=== PATIENT | female | born 1980 | race Asian ===

== ENCOUNTER 2016-08-22 15:50 | Inpatient (IN) | payer SELFPAY ==
[~2016-08-22] VITALS: Ht 162.6 cm; Wt 68.0 kg
[~2016-08-22 15:50] MED LIST: IBUP-974 PO
[2016-08-22] MEDS ORDERED: PREN-380 PO (16:16)
[2016-08-22] MEDS ORDERED: METOCLOPRAMIDE 10 MG/2 ML INJ VIAL IVP SCH (16:21)
[2016-08-22] MEDS ORDERED: TRIAMCINOLONE 10 MG/ML 5ML VIAL IA SCH (16:22)
[2016-08-22] MEDS: LACTATED RINGERS 1,000 ML IV SCH ×2 (16:36→18:30)
[2016-08-22 17:35] VITALS: BP 112/72
[2016-08-22 17:57] LABS: BASOPHILS # (AUTO) 0.1 K/uL (0.00-0.22); BASOPHILS % (AUTO) 0.5 % (0.0-2.0); EOSINOPHILS # (AUTO) 0.2 K/uL (0-0.4); EOSINOPHILS % (AUTO) 1.5 % (0.0-4.0); HEMATOCRIT 34.2 % (36-48); HEMOGLOBIN 11.1 g/dL (12.0-16.0); LYMPHOCYTES # (AUTO) 1.4 K/uL (2.5-16.5); MEAN CORPUSCULAR HEMOGLOBIN 28 pg (27-31); MEAN CORPUSCULAR HGB CONC 32 g/dL (33-37); MEAN CORPUSCULAR VOLUME 87 fL (80-94); MONOCYTES # (AUTO) 0.8 K/uL (0.8-1.0); MONOCYTES % (AUTO) 6.7 % (1.7-9.3); NEUTROPHILS # (AUTO) 9.9 K/uL (1.8-7.7); NEUTROPHILS % (AUTO) 80.3 % (42.2-75.2); PLATELET COUNT (AUTO) 235 K/uL (140-450); RED BLOOD CELL COUNT(AUTO) 3.95 MIL/uL (4.20-5.40); RED CELL DISTRIBUTION WIDTH 13.8 % (11.6-13.7); WHITE BLOOD COUNT (AUTO) 12.4 K/uL (4.8-10.8)
[2016-08-22] MEDS ORDERED: TRIAMCINOLONE 10 MG/ML 5ML VIAL ONE (17:58)
[2016-08-22] MEDS ORDERED: OXYTOCIN 10 UNITS/ML VIAL ONE ×2 (17:58→19:18)
[2016-08-22 18:10] LABS: APPEARANCE,URINE CLEAR (CLEAR); BILIRUBIN,URINE NEGATIVE (NEGATIVE); BLOOD, URINE TRACE-I (NEGATIVE); COLOR,URINE YELLOW (YELLOW); LEUKOCYTE ESTERASE ,URINE NEGATIVE (NEGATIVE); NITRITE, URINE NEGATIVE (NEGATIVE); PROTEIN,URINE NEGATIVE (NEGATIVE); UGLUCOSE NEGATIVE (NEGATIVE); UROBILINOGEN,URINE 0.2 EU/dL (0.2 - 1)
[2016-08-22 18:20] LABS: ANION GAP 13.9 (8-16); CALCIUM 8.4 mg/dL (8.5-10.1); CARBON DIOXIDE 23.8 mmol/L (21-32); CREATININE 0.5 mg/dL (0.6-1.3); POTASSIUM 3.7 mmol/L (3.5-5.1)
[2016-08-22 18:24] LABS: BACTERIA,URINE FEW /HPF (None Seen); RBC,URINE NONE SEEN /HPF (0-5); SQUAMOUS EPITHELIAL CELL,UR RARE /LPF (0-3 (FEW)); WBC,URINE 0-5 (RARE) /HPF (0-5)
[2016-08-22 18:25] LABS: ALBUMIN 2.7 g/dL (3.4-5.0); TOTAL BILIRUBIN 0.4 mg/dL (0.0-1.0); TOTAL PROTEIN, SERUM 6.5 g/dL (6.4-8.2)
[2016-08-22] MEDS ORDERED: KETOROLAC 30 MG/ML VIAL ONE (19:18)
[2016-08-22] MEDS ORDERED: ONDANSETRON 4 MG/2 ML VIAL ONE (19:18)
[2016-08-22] MEDS ORDERED: BUPIVACAINE-MPF 0.75% 10 ML VIAL INJ ONE (19:18)
[2016-08-22] MEDS ORDERED: ceFAZolin 1,000 MG VIAL IVP ONE (19:21)
[2016-08-22] MEDS ORDERED: MORPHINE PRES FREE 10 MG/10 ML AMP IV ONE (19:25)
[2016-08-22] MEDS ORDERED: OXYTOCIN 20 UNITS/LR PREMIX 1,000 ML IV ONE ×2 (19:35→21:02)
[2016-08-22] MEDS ORDERED: diphenhydrAMINE 50 MG/ML VIAL ONE (19:35)
[2016-08-22] MEDS ORDERED: NALOXONE 0.4 MG/ML VIAL IVP PRN ×2 (19:45)
[2016-08-22] MEDS ORDERED: OXYTOCIN 20 UNITS/LR PREMIX 1,000 ML IV SCH (19:45)
[2016-08-22] MEDS ORDERED: TRIMETHOBENZAMIDE 200 MG/2 ML SYR IM PRN (19:55)
[2016-08-22] MEDS ORDERED: SIMETHICONE 80 MG TAB.CHEW PO PRN (19:55)
[2016-08-22] MEDS ORDERED: METHYLERGONOVINE 0.2 MG/ML AMP IM PRN (19:55)
[2016-08-22] MEDS ORDERED: BUPRENORPHINE 0.3 MG/ML VIAL IV PRN (19:55)
[2016-08-22] MEDS ORDERED: TEMAZEPAM 15 MG CAP PO PRN (19:55)
[2016-08-22] MEDS ORDERED: MEASLES, MUMPS, AND RUBELLA 1 VIAL SQVAC PRN (19:55)
[2016-08-22] MEDS ORDERED: oxyCODONE/APAP 5/325 MG 1 TAB TAB PO PRN (19:55)
[2016-08-22] MEDS ORDERED: SODIUM PHOSPHATE 118 ML ENEM RC PRN (19:55)
[2016-08-22] MEDS: diphenhydrAMINE 50 MG/ML VIAL IVP PRN (20:18)
[2016-08-22] MEDS: OXYTOCIN 20 UNITS/LR PREMIX 1,000 ML IV SCH ×2 (20:30→21:09)
[2016-08-22] MEDS: DOCUSATE SOD/SENNA 50/8.6 MG 1 TAB PO SCH (21:00)
[2016-08-23] MEDS: KETOROLAC 30 MG/ML VIAL IVP PRN ×2 (00:14→12:17)
[2016-08-23] MEDS: diphenhydrAMINE 50 MG/ML VIAL IVP PRN ×3 (00:18→08:32)
[2016-08-23] MEDS: OXYTOCIN 20 UNITS/LR PREMIX 1,000 ML IV SCH ×2 (03:56→15:08)
[2016-08-23] MEDS ORDERED: LACTATED RINGERS 1,000 ML IV SCH (06:00)
[2016-08-23 06:16] LABS: HEMATOCRIT 24.9 % (36-48); HEMOGLOBIN 8.4 g/dL (12.0-16.0); MEAN CORPUSCULAR HEMOGLOBIN 29 pg (27-31); MEAN CORPUSCULAR HGB CONC 34 g/dL (33-37); MEAN CORPUSCULAR VOLUME 86 fL (80-94); PLATELET COUNT (AUTO) 210 K/uL (140-450); RED CELL DISTRIBUTION WIDTH 13.9 % (11.6-13.7); WHITE BLOOD COUNT (AUTO) 10.8 K/uL (4.8-10.8)
[2016-08-23 08:00] LABS: BAND % (MANUAL) 6 % (0-8); LYMPHOCYTES % (MANUAL) 7 % (20-46); MONOCYTES % (MANUAL) 2 % (5-12); NEUTROPHILS % (MANUAL) 85 (43-65); PLATELET ESTIMATE ADEQUATE
--- NOTE | 2016-08-23 08:59 | NUR ---
PATIENT HAS BEEN SCREENED AND CATEGORIZED LOW NUTRITION RISK. PATIENT WILL BE SEEN WITHIN 7 DAYS OF ADMISSION. 08/29/[address]
[2016-08-23] MEDS: HYDROcodone/APAP 5/325 MG 1 TAB TAB PO PRN ×2 (18:33→23:17)
[2016-08-23] MEDS: DOCUSATE SOD/SENNA 50/8.6 MG 1 TAB PO SCH (20:09)
[2016-08-24] MEDS: HYDROcodone/APAP 5/325 MG 1 TAB TAB PO PRN ×3 (06:17→21:47)
[2016-08-24] MEDS ORDERED: PROMETHAZINE 6.25 MG/5 ML ORASYR PO PRN (20:30)
[2016-08-24] MEDS: DOCUSATE SOD/SENNA 50/8.6 MG 1 TAB PO SCH (20:56)
[2016-08-24] MEDS ORDERED: PROMETH/CODEINE 6.25-10MG/5ML 5 ML UDC ONE (23:15)
[2016-08-25] MEDS: HYDROcodone/APAP 5/325 MG 1 TAB TAB PO PRN ×3 (02:30→15:26)
[2016-08-25] MEDS ORDERED: PROMETHAZINE 6.25 MG/5 ML ORASYR PO PRN (12:30)
== END 2016-08-25 16:35 | disposition home or self-care (01) | DRG 765 ==
LOC: MLD 15:50 → MFCC 20:41
PROVIDERS: ADMIT Obstetrics & Gynecology; ATTEND Obstetrics & Gynecology
PROC: 10D00Z1 Extraction of Products of Conception, Low, Open Approach (ICD-10-PCS; principal; 2016-08-22 19:30)
DX: O34.211 Maternal care for low transverse scar from previous cesarean delivery (principal); B19.10 Unspecified viral hepatitis B without hepatic coma; O98.42 Viral hepatitis complicating childbirth; O77.0 Labor and delivery complicated by meconium in amniotic fluid; O69.81X0 Labor and delivery complicated by cord around neck, without compression, not applicable or unspecified; Z37.0 Single live birth; O09.523 Supervision of elderly multigravida, third trimester; Z3A.39 39 weeks gestation of pregnancy; Z28.21 Immunization not carried out because of patient refusal
CPT/HCPCS: 36415; 51702; 80053; 81001; 85025; 86592; 86886; 86900; 86901; J0690; J1200; J1885; J2270; J2405; J2590; J3301; J3490; J7060; J7120